=== PATIENT | male | born 1990 | race Two or more races ===

== ENCOUNTER 2017-07-08 20:10 | Emergency (ER) | payer SELFPAY ==
[~2017-07-08] VITALS: Ht 182.9 cm; Wt 72.6 kg
[2017-07-08 20:20] VITALS: BP 122/83
[2017-07-08] MEDS ORDERED: AUGMENTIN 875-1 EAC1 ORAL (20:32)
[2017-07-08 20:45] VITALS: BP 122/83
--- NOTE | 2017-07-10 07:42 | Emergency Room Report ---
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 He reports that the dog in the house bit him on the right knee Denies any fevers or chills denies any chest pain or short of breath Denies any other trauma to the upper or lower extremity Allergies: Coded Allergies: No Known Allergies (Unverified , 07/08/17) Patient History Past Medical History: see triage record Pertinent Family History: none Reviewed Nursing Documentation: PMH: Agreed; PSxH: Agreed Nursing Documentation-PMH Past Medical History: No Stated History Review of Systems All Other Systems: negative except mentioned in HPI Physical Exam Vital Signs Date Time Temp Pulse Resp B/P (MAP) Pulse Ox O2 Delivery O2 Flow Rate FiO2 07/08/17 20:14 97.8 61 16 122/83 96 Room Air 97.9 Sp02 EP Interpretation: reviewed, normal General Appearance: well appearing, no apparent distress Head: normocephalic, atraumatic Eyes: bilateral eye PERRL, bilateral eye EOMI ENT: hearing grossly normal, normal pharynx Neck: supple Respiratory: lungs clear Cardiovascular #1: regular rate, rhythm Gastrointestinal: non tender Musculoskeletal: normal inspection Neurologic: alert, oriented x3 Skin: other - Small abrasion type injury to the right knee, appears of the very superficial aspect of the skin has been affected, however no laceration made Lymphatic: no adenopathy Medical Decision Making Diagnostic Impression: Primary Impression: Bite by animal ER Course The area in question appears to be fairly superficial in nature Patient did not require further tetanus or intervention the ER Patient was provided with antibiotic medication prophylactically At this time stable for close outpatient follow-up Last Vital Signs Date Time Temp Pulse Resp B/P (MAP) Pulse Ox O2 Delivery O2 Flow Rate FiO2 07/08/17 20:45 97.9 16 122/83 96 Room Air 97.9 07/08/17 20:14 61 Status: unchanged Disposition: HOME, SELF-CARE Condition: Stable Scripts Amoxicillin/Potassium Clav 875-125* (AUGMENTIN 875-125 TABLET*) 1 Each Tablet 1 TAB ORAL TWICE A DAY, #14 TAB Prov: NguyenClarice DO 07/08/17 Referrals: NOT CHOSEN [facility]/MD,REFERRING (PCP) Patient Instructions: Animal Bite Additional Instructions: Patient is provided with the discharge instructions notified to follow up with primary doctor in the next 2-3 days otherwise return to the er with any worsening symptoms. Please note that this report is being documented using DRAGON technology. This can lead to erroneous entry secondary to incorrect interpretation by the dictating instrument. Clarice Cedillo DO July 10, 2017 07:42
== END 2017-07-08 20:45 | disposition home or self-care (01) ==
LOC: EMR 20:45
DX: S80.211A Abrasion, right knee, initial encounter (principal); W54.0XXA Bitten by dog, initial encounter; Y92.9 Unspecified place or not applicable
CPT/HCPCS: 99283